=== PATIENT | male | born 1995 | race Caucasian/White ===

== ENCOUNTER 2018-01-15 13:55 | Emergency (ER) | payer OTHER ==
[2018-01-15] MEDS ORDERED: diphenhydrAMINE 25 MG Tab PO ONE (15:01)
[2018-01-15] MEDS ORDERED: predniSONE 20 MG Tab PO ONE (15:01)
[2018-01-15] MEDS ORDERED: Amoxicillin/Clavulanate K 875-125 MG Tab PO ONE (15:02)
--- NOTE | 2018-01-15 15:37 | EDM.PDOC ---
Scribed by Marybeth Bassett 01/15/18 [id number] for David Ellis MD ED HPI GENERAL MEDICAL PROBLEM - General Chief Complaint: Respiratory Problem Stated Complaint: FLU LIKE SYMPTOMS, CHEST PAIN, WEAK Time Seen by Provider: 01/15/18 14:09 Source of Information: Reports: Patient, RN, RN Notes Reviewed History Limitations: Reports: No Limitations - History of Present Illness INITIAL COMMENTS - FREE TEXT/NARRATIVE: Patient presents to ER with several days of cough, congestion and sinus pain and pressure. He states that he has been having cough with whitish green sputum. Allergy symptoms with congestion for the past couple of months. He admits to chills. Denies fever. States that his throat has been sore. No known sick contacts. Onset: Gradual Duration: Getting Worse Location: Reports: Generalized Quality: Reports: Ache Severity: Severe Improves with: Reports: None Worsens with: Reports: None Associated Symptoms: Reports: No Other Symptoms - Related Data Allergies Allergy/AdvReac Type Severity Reaction Status Date / Time No Known Allergies Allergy Verified 01/15/18 14:06 Social & Family History - Tobacco Use Smoking Status *Q: Never Smoker Second Hand Smoke Exposure: No - Caffeine Use Caffeine Use: Reports: Coffee, Soda - Recreational Drug Use Recreational Drug Use: No ED ROS GENERAL - Review of Systems Review Of Systems: ROS reveals no pertinent complaints other than HPI. ED EXAM, GENERAL - Physical Exam Exam: See Below Exam Limited By: No Limitations General Appearance: Anxious, Other (acutely ill but nontoxic appearing) Eye Exam: Bilateral Eye: Normal Inspection Ears: Normal External Exam, Normal Canal, Hearing Grossly Normal, Normal TMs Nose: Other (inflamed nasal mucosa, infected turbinates, purulent drainage tinged mucous drainage.) Throat/Mouth: Normal Lips, Other (streaky erythema with postnasal drip.) Head: Atraumatic, Normocephalic Neck: Normal Inspection, Supple, Non-Tender, Full Range of Motion Respiratory/Chest: No Respiratory Distress, Other (dry cough) Cardiovascular: Normal Peripheral Pulses, Regular Rate, Rhythm, No Edema, No Gallop, No JVD, No Murmur, No Rub GI/Abdominal: Normal Bowel Sounds, Soft, Non-Tender, No Organomegaly, No Distention, No Abnormal Bruit, No Mass (Male) Exam: Deferred Rectal (Males) Exam: Deferred Back Exam: Normal Inspection, Full Range of Motion, NT Extremities: Normal Inspection, Normal Range of Motion, Non-Tender, Normal Capillary Refill, No Pedal Edema Neurological: Alert Psychiatric: Normal Affect, Normal Mood Skin Exam: Warm, Dry, Intact, Normal Color, No Rash Course - Vital Signs Last Recorded V/S: Last Vital Signs Temp 36.7 C 01/15/18 14:01 Pulse 100 01/15/18 14:01 Resp 20 01/15/18 14:01 BP 140/88 01/15/18 14:01 Pulse Ox 100 01/15/18 14:01 - Orders/Labs/Meds Orders: Active Orders 24 hr Category Date Time Status Chest 2V [CR] Stat Exams 01/15/18 14:18 Taken CULTURE STREP A CONFIRMATION [] Stat Lab 01/15/18 14:19 Results STREP SCRN A RAPID W CULT CONF [] Stat Lab 01/15/18 14:19 Results Labs: Laboratory Tests 01/15/18 Range/Units 14:27 WBC 6.8 (5.0-10.0) 10^3/uL RBC 5.50 (4.6-6.2) 10^6/uL Hgb 15.8 (14.0-18.0) g/dL Hct 47.1 (40.0-54.0) % MCV 85.6 (80-100) fL MCH 28.7 (27.0-34.0) pg MCHC 33.5 (33.0-35.0) g/dL Plt Count 284 (150-450) 10^3/uL Neut % (Auto) 52.6 (42.2-75.2) % Lymph % (Auto) 22.4 (20.5-50.1) % [place] % (Auto) 12.2 H (2-8) % Eos % (Auto) 12.2 H (1.0-3.0) % Baso % (Auto) 0.6 (0.0-1.0) % Rapid strep: Negative. Meds: Medications Discontinued Medications Generic Name Dose Route Start Last Admin Trade Name Freq PRN Reason Stop Dose Admin Amoxicillin/Clavulanate Potassium 1 tab 01/15/18 15:02 01/15/18 15:23 Augmentin 875 Mg/125 Mg PO 01/15/18 15:03 1 tab ONETIME ONE Administration Diphenhydramine HCl 25 mg 01/15/18 15:01 01/15/18 15:23 Benadryl PO 01/15/18 15:02 25 mg ONETIME ONE Administration Prednisone 60 mg 01/15/18 15:01 01/15/18 15:23 Prednisone PO 01/15/18 15:02 60 mg ONETIME ONE Administration - Radiology Interpretation Free Text/Narrative:: Chest x-ray: No focal pneumonia or pleural effusions. Mild atelectasis within the lung bases, greater on the right. See rad report. Departure - Departure Time of Disposition: 15:25 Disposition: Home, Self-Care 01 Condition: Good Clinical Impression: Sinusitis Qualifiers: Sinusitis location: unspecified location Chronicity: acute Recurrence: non- recurrent Qualified Code(s): J01.90 - Acute sinusitis, unspecified - Discharge Information Instructions: Sinusitis, Adult, [id number] Forms: ED Department Discharge Additional Instructions: RX: Prednisone 20mg. RX: Augmentin 875,g. RX: Loratadine D 24 hour. Follow up in clinic if not improving in 5 to 7 days. - My Orders Last 24 Hours: My Active Orders 01/15/18 14:18 Chest 2V [CR] Stat 01/15/18 14:19 CULTURE STREP A CONFIRMATION [RM] Stat STREP SCRN A RAPID W CULT CONF [RM] Stat - Assessment/Plan Last 24 Hours: My Active Orders 01/15/18 14:18 Chest 2V [CR] Stat 01/15/18 14:19 CULTURE STREP A CONFIRMATION [RM] Stat STREP SCRN A RAPID W CULT CONF [RM] Stat I have read and agree with the documentation that has been completed regarding this visit. By signing this record, I attest that the documentation was completed in my physical presence and is an accurate record of the encounter.
== END 2018-01-15 15:31 | disposition home or self-care (01) ==
LOC: DL.ED 13:55
DX: J01.90 Acute sinusitis, unspecified (principal)
CPT/HCPCS: 36415; 71046; 85025; 87081; 87430; 99285; A9270

== ENCOUNTER 2018-01-28 19:03 | Emergency (ER) | payer OTHER ==
[2018-01-28] MEDS ORDERED: methylPREDNISolone Sodium Succinate 125 MG/2 ML SDV IM ONE (19:34)
[2018-01-28] MEDS ORDERED: diphenhydrAMINE 50 MG Cap PO ONE (19:34)
--- NOTE | 2018-01-28 19:42 | EDM.PDOC ---
ED HPI GENERAL MEDICAL PROBLEM - General Chief Complaint: Allergic Reaction Stated Complaint: alergic reaction [id number] Time Seen by Provider: 01/28/18 19:36 Source of Information: Reports: Patient History Limitations: Reports: No Limitations - History of Present Illness INITIAL COMMENTS - FREE TEXT/NARRATIVE: been taking augmentin started itchy rash 3 days ago and not getting better. did finish his augmentin. - Related Data Allergies Allergy/AdvReac Type Severity Reaction Status Date / Time No Known Allergies Allergy Verified 01/28/18 19:31 Home Meds: Home Meds . [No Known Home Meds] 01/28/18 [History] lamoTRIgine 100 mg PO DAILY 01/28/18 [History] Past Medical History HEENT History: Reports: Impaired Vision Other HEENT History: wears glasses Cardiovascular History: Reports: None Respiratory History: Reports: None Gastrointestinal History: Reports: None Genitourinary History: Reports: None Musculoskeletal History: Reports: Fracture Neurological History: Reports: Concussion, Head Trauma Psychiatric History: Reports: ADD, Other (See Below) Other Psychiatric History: anger Endocrine/Metabolic History: Reports: None Hematologic History: Reports: None Immunologic History: Reports: None Oncologic (Cancer) History: Reports: None Dermatologic History: Reports: None - Infectious Disease History Infectious Disease History: Reports: Chicken Pox - Past Surgical History Head Surgeries/Procedures: Reports: None HEENT Surgical History: Reports: Tonsillectomy Musculoskeletal Surgical History: Reports: Other (See Below) Other Musculoskeletal Surgeries/Procedures:: left leg has titanium anders and screws Social & Family History - Tobacco Use Smoking Status *Q: Never Smoker - Caffeine Use Caffeine Use: Reports: Coffee, Soda - Recreational Drug Use Recreational Drug Use: No ED ROS ALLERGIC REACTION - Review of Systems Review Of Systems: ROS reveals no pertinent complaints other than HPI. ED EXAM GENERAL NO PERIP PULSE - Physical Exam Exam: See Below Exam Limited By: No Limitations General Appearance: Alert, WD/WN, Mild Distress, Other (itch) Ears: Hearing Grossly Normal Throat/Mouth: Normal Inspection, Normal Oropharynx, Normal Voice, No Airway Compromise Head: Atraumatic Neck: Non-Tender, Full Range of Motion Respiratory/Chest: No Respiratory Distress, Lungs Clear, Normal Breath Sounds Cardiovascular: Regular Rate, Rhythm GI/Abdominal: Soft, Non-Tender Neurological: Alert, Oriented, Normal Cognition, Normal Gait, No Motor/Sensory Deficits Psychiatric: Normal Affect, Normal Mood Skin Exam: Warm, Dry, Normal Color, Rash Lymphatic: No Adenopathy Course - Vital Signs Last Recorded V/S: Last Vital Signs Temp 36.8 C 01/28/18 19:28 Pulse 93 01/28/18 19:28 Resp 18 01/28/18 19:28 BP 155/89 H 01/28/18 19:28 Pulse Ox 100 01/28/18 19:28 - Orders/Labs/Meds Meds: Medications Discontinued Medications Generic Name Dose Route Start Last Admin Trade Name Yisel PRN Reason Stop Dose Admin Diphenhydramine HCl 50 mg 01/28/18 19:34 Benadryl PO 01/28/18 19:35 ONETIME ONE Methylprednisolone Sodium Succinate 125 mg 01/28/18 19:34 Solu-Medrol IM 01/28/18 19:35 ONETIME ONE Departure - Departure Time of Disposition: 19:38 Disposition: Home, Self-Care 01 Condition: Good Clinical Impression: Allergic reaction caused by a drug Qualifiers: Encounter type: initial encounter Qualified Code(s): T78.40XA - Allergy, unspecified, initial encounter - Discharge Information Instructions: Rash, [id number] Additional Instructions: 1) avoid all penicillin products 2) take benadryl 25mg 3 times daily for itchy rash 3) recheck if there is any change or concern rx given; medrol dospak
== END 2018-01-28 20:00 | disposition home or self-care (01) ==
LOC: DL.ED 19:03
DX: R21 Rash and other nonspecific skin eruption (principal); T36.0X5A Adverse effect of penicillins, initial encounter; Z79.899 Other long term (current) drug therapy
CPT/HCPCS: 96372; 99282; J2930; Q0163

== ENCOUNTER 2019-05-27 11:55 | Emergency (ER) | payer BC, OTHER ==
--- NOTE | 2019-05-27 13:27 | EDM.PDOC ---
ED HPI GENERAL MEDICAL PROBLEM - General Chief Complaint: Skin Complaint Stated Complaint: BLEEDING FROM [place] Time Seen by Provider: 05/27/19 13:20 Source of Information: Reports: Patient History Limitations: Reports: No Limitations - History of Present Illness INITIAL COMMENTS - FREE TEXT/NARRATIVE: This 24 yo male patient reports to the ED due to having some drainage from his umbilicus today. The patient reports he noticed it at work today with no previous symptoms. Onset: Today Duration: Minutes: Location: Reports: Abdomen Quality: Reports: Other Severity: Mild Improves with: Reports: None Worsens with: Reports: None Context: Reports: Other Associated Symptoms: Reports: No Other Symptoms - Related Data Allergies Allergy/AdvReac Type Severity Reaction Status Date / Time No Known Allergies Allergy Verified 05/27/19 12:35 Home Meds: Home Meds lamoTRIgine 200 mg PO DAILY 01/28/18 [History] Fexofenadine HCl [Rand Allergy] 60 mg PO DAILY 05/27/19 [History] Lisdexamfetamine Dimesylate [Vyvanse] 7 mg PO DAILY 05/27/19 [History] Multivitamin [Multi-Vitamin Daily] 1 tab PO DAILY 05/27/19 [History] Past Medical History HEENT History: Reports: Impaired Vision Other HEENT History: wears glasses Cardiovascular History: Reports: None Respiratory History: Reports: None Gastrointestinal History: Reports: None Genitourinary History: Reports: None Musculoskeletal History: Reports: Fracture Neurological History: Reports: Concussion, Head Trauma Psychiatric History: Reports: ADD, Other (See Below) Other Psychiatric History: anger Endocrine/Metabolic History: Reports: None Hematologic History: Reports: None Immunologic History: Reports: None Oncologic (Cancer) History: Reports: None Dermatologic History: Reports: None - Infectious Disease History Infectious Disease History: Reports: Chicken Pox - Past Surgical History Head Surgeries/Procedures: Reports: None HEENT Surgical History: Reports: Tonsillectomy Musculoskeletal Surgical History: Reports: Other (See Below) Other Musculoskeletal Surgeries/Procedures:: left leg has titanium anders and screws Social & Family History - Family History Family Medical History: Noncontributory - Tobacco Use Smoking Status *Q: Never Smoker Second Hand Smoke Exposure: No - Caffeine Use Caffeine Use: Reports: Coffee, Energy Drinks, Soda, Tea - Recreational Drug Use Recreational Drug Use: No ED ROS GENERAL - Review of Systems Review Of Systems: Comprehensive ROS is negative, except as noted in HPI. ED EXAM, SKIN/RASH Exam: See Below Exam Limited By: No Limitations General Appearance: Alert, WD/WN, Mild Distress Eye Exam: Bilateral Eye: EOMI, PERRL Ears: Normal External Exam, Hearing Grossly Normal Nose: Normal Inspection, No Blood Throat/Mouth: Normal Inspection, Normal Lips, Normal Teeth, No Airway Compromise Head: Atraumatic, Normocephalic Neck: Full Range of Motion Respiratory/Chest: No Respiratory Distress Cardiovascular: Normal Peripheral Pulses, Regular Rate, Rhythm GI/Abdominal: Other (The patient has a small amount of bloody drainage from his umbilicus. There is some mild swelling/erythema of the area. The patient has an opened pimple in the vacinity. ) (Male) Exam: Deferred Rectal (Males) Exam: Deferred Back Exam: Normal Inspection, Full Range of Motion, NT Extremities: Normal Inspection, Normal Range of Motion, Non-Tender, No Pedal Edema, Normal Capillary Refill Neurological: Alert, Oriented, CN II-XII Intact, Normal Cognition, Normal Gait Psychiatric: Normal Affect, Normal Mood Location, Skin: Other Characteristics: Erythematous Associated features: Inflammation, Weeping Lymphatic: No Adenopathy Course - Vital Signs Last Recorded V/S: Last Vital Signs Temp 37.2 C 05/27/19 12:37 Pulse 90 05/27/19 12:37 Resp 18 05/27/19 12:37 BP 131/74 05/27/19 12:37 Pulse Ox 100 05/27/19 12:37 Departure - Departure Time of Disposition: 13:25 Disposition: Home, Self-Care 01 Condition: Fair Clinical Impression: Cellulitis of umbilicus - Discharge Information *PRESCRIPTION DRUG MONITORING PROGRAM REVIEWED*: Not Applicable *COPY OF PRESCRIPTION DRUG MONITORING REPORT IN PATIENT AMY: Not Applicable Instructions: Cellulitis, Adult, [id number]-[id number] Forms: ED Department Discharge Care Plan Goals: The patient was advised of the examination and lab results during the visit. The patient was discharged with a script for Keflex (500 mg) to take 1 by mouth 3 times per day for 10 days. The patient was encouraged to follow-up with his primary care facility. If the patient has any additional symptoms or concerns, the patient should either return to the emergency department or visit his primary care facility. Sepsis Event Note - Evaluation Sepsis Screening Result: No Definite Risk - Focused Exam Vital Signs: Vital Signs Temp Pulse Resp BP Pulse Ox 05/27/19 12:37 37.2 C 90 18 131/74 100 Date Exam was Performed: 05/27/19 Time Exam was Performed: 13:29
== END 2019-05-27 13:32 | disposition home or self-care (01) ==
LOC: DL.ED 11:55
DX: L03.316 Cellulitis of umbilicus (principal); F98.8 Other specified behavioral and emotional disorders with onset usually occurring in childhood and adolescence; Z79.899 Other long term (current) drug therapy
CPT/HCPCS: 99282

== ENCOUNTER 2020-10-02 19:03 | Emergency (ER) | payer SELFPAY | END 2020-10-02 22:11 | disposition left against medical advice (07) | LOC: DL.ED 19:03 | DX: L08.9 Local infection of the skin and subcutaneous tissue, unspecified (principal); Z53.21 Procedure and treatment not carried out due to patient leaving prior to being seen by health care provider ==

== ENCOUNTER 2021-06-16 18:25 | Emergency (ER) | payer OTHER ==
[2021-06-16 19:35] LABS: CORONAVIRUS COVID-19 NAA NEGATIVE (NEGATIVE)
[2021-06-16] MEDS ORDERED: Sodium Chloride 0.9% 1,000 ML IV ONE (20:18)
[2021-06-16 20:53] LABS: AMPHETAMINES,URINE NEGATIVE (NEGATIVE); BARBITURATES,URINE NEGATIVE (NEGATIVE); BENZODIAZEPINE,URINE NEGATIVE (NEGATIVE); MDMA (ECSTASY), URINE NEGATIVE (NEGATIVE); METHADONE,URINE NEGATIVE (NEGATIVE); METHAMPHETAMINES,URINE NEGATIVE (NEGATIVE); OPIATES,URINE NEGATIVE (NEGATIVE); OXYCODONE,URINE NEGATIVE (NEGATIVE); PHENCYCLIDINE,URINE NEGATIVE (NEGATIVE); TCA,URINE NEGATIVE (NEGATIVE)
[2021-06-16 21:23] LABS: ANION GAP 10.5 mEq/L (7-13); CHLORIDE,CL 104 mmol/L (98-107); SODIUM,NA 139 mmol/L (136-145)
[2021-06-16] MEDS ORDERED: Magnesium Sulfate/Water 2 GM in Premix Bag 1 BAG IV ONE (21:42)
[2021-06-16] MEDS: Magnesium Sulfate/Water 2 GM in Premix Bag 1 BAG IV ONE ×2 (21:55→22:04)
== END 2021-06-16 22:45 | disposition home or self-care (01) ==
LOC: DL.ED 18:25
DX: K52.9 Noninfective gastroenteritis and colitis, unspecified (principal); E83.42 Hypomagnesemia; Z88.0 Allergy status to penicillin; Z91.09 Other allergy status, other than to drugs and biological substances; Z20.822 Contact with and (suspected) exposure to COVID-19
CPT/HCPCS: 0240U; 36415; 71045; 80053; 80305-QW; 80307; 81001; 82150; 83605; 83690; 83735; 85025; 86140; 96365; 99285-25; J3475; J7030